=== PATIENT | male | born 1950 | race Caucasian/White ===

== ENCOUNTER 2018-07-20 12:09 | Inpatient (IN) | payer OTHER, MEDICAID ==
[~2018-07-20] VITALS: Ht 190.5 cm; Wt 94.8 kg
[2018-07-20] MEDS ORDERED: FURO20TA90 (12:25)
[2018-07-20] MEDS ORDERED: CLOP75TA15 PO (12:25)
[2018-07-20] MEDS ORDERED: DILTIAZEM HCL 25 MG IV IV ONE (12:45)
--- NOTE | 2018-07-20 12:52 | NUR ---
PT IS IN ROOM #2A. DR NOLASCO EVALUATED THE PT.
[2018-07-20 13:02] LABS: BASOPHILS % (AUTO) 0.7 % (0.0-2.0); EOSINOPHILS # (AUTO) 0.1 K/uL (0.0-0.7); HEMATOCRIT 36.7 % (36.7-47.1); HEMOGLOBIN 12.3 g/dL (12.5-16.3); LYMPHOCYTES # (AUTO) 0.9 K/uL (20.0-40.0); LYMPHOCYTES % (AUTO) 13.8 % (20.5-51.5); MEAN CORPUSCULAR HEMOGLOBIN 29.6 uug (23.8-33.4); MEAN CORPUSCULAR HGB CONC 34 g/dL (32.5-36.3); MEAN CORPUSCULAR VOLUME 88.1 fL (73.0-96.2); MONOCYTES # (AUTO) 0.7 K/uL (2.0-10.0); NEUTROPHILS # (AUTO) 4.9 K/uL (1.8-8.9); NEUTROPHILS % (AUTO) 72.5 % (38.5-71.5); PLATELET COUNT (AUTO) 307 K/uL (152-348); RED BLOOD CELL COUNT(AUTO) 4.17 MIL/uL (4.06-5.63); WHITE BLOOD COUNT (AUTO) 6.7 K/uL (3.6-10.2)
[2018-07-20 13:07] LABS: POTASSIUM 3.1 mmol/L (3.5-5.1)
[2018-07-20 13:12] LABS: BILIRUBIN,DIRECT 0.3 mg/dL (0.0-0.2); BILIRUBIN,TOTAL 0.7 mg/dL (0.2-1.0); TOTAL PROTEIN, SERUM 8.2 g/dL (6.4-8.2)
[2018-07-20] MEDS ORDERED: VANCOMYCIN IV 1,000 MG in IV DEXTROSE 5% 250 ML IV ONE (13:30)
[2018-07-20] MEDS ORDERED: POTASSIUM CHLORIDE 20 MEQ TAB.PRT.SR PO ONE (13:30)
[2018-07-20] MEDS ORDERED: VANCOMYCIN IV 200 ML ONE (13:34)
[2018-07-20] MEDS ORDERED: POTASSIUM CHLORIDE 20 MEQ TAB.PRT.SR ONE (13:34)
[2018-07-20] MEDS ORDERED: IV NORMAL SALINE 1000 ML BAG IV ONE ×2 (13:45)
[2018-07-20] MEDS ORDERED: ENOXAPARIN SODIUM 40 MG/0.4 ML DISP.SYRIN SQ SCH (14:15)
[2018-07-20] MEDS ORDERED: ACETAMINOPHEN 325 MG TABLET PO PRN ×2 (14:15→14:45)
[2018-07-20] MEDS ORDERED: MORPHINE SULFATE 2 MG/1 ML DISP.SYRIN IV PRN (14:15)
[2018-07-20] MEDS ORDERED: Z GUARD REMEDY PASTE 57 GM TUBE TOP PRN ×2 (14:15→14:45)
[2018-07-20] MEDS ORDERED: HYDROCODONE/APAP 5-325MG TABLET PO PRN ×2 (14:15→14:45)
[2018-07-20] MEDS ORDERED: MAGNESIUM HYDROXIDE 30 ML LIQUID UDC PO PRN ×2 (14:15→14:45)
[2018-07-20] MEDS ORDERED: ONDANSETRON 4 MG/2 ML VIAL IV PRN ×2 (14:15→14:45)
[2018-07-20] MEDS ORDERED: MORPHINE SULFATE 4 MG/1 ML DISP.SYRIN ONE (14:27)
[2018-07-20] MEDS ORDERED: diphenhydrAMINE 50 MG/1 ML VIAL IV ONE (14:30)
[2018-07-20] MEDS ORDERED: diphenhydrAMINE 50 MG/1 ML VIAL ONE (14:30)
[2018-07-20] MEDS ORDERED: MORPHINE SULFATE 4 MG/1 ML DISP.SYRIN IV ONE (14:30)
--- NOTE | 2018-07-20 14:35 | NUR ---
REPORT WAS GIVEN TO NON DESTRUCTIVE TESTER. PT WAS TRANSFERED TO ROOM #319.
[2018-07-20] MEDS ORDERED: APIX5TAB PO (15:04)
[2018-07-20] MEDS ORDERED: LISI-607 PO (15:04)
[2018-07-20] MEDS ORDERED: FURO40TA5 PO (15:04)
--- NOTE | 2018-07-20 15:04 | NUR ---
Patient's family discussed home medications with staff via telephone, updated record.
--- NOTE | 2018-07-20 16:16 | NUR ---
CLINICAL PHARMACY NOTE:VANCOMYCIN DOSING Request for vancomycin dosing on 67 y/o male 6'3" 210lbs for left foot cellulitis Temp 98.2 BUN 16 Scr 10 WBC 6.7 Received vancomycin 1gm in ER Continue vancomycin 1500mg ivpb q12h estimated trough 16. Will order trough level prior to 4th dose. Will continue to monitor
--- NOTE | 2018-07-20 16:30 | NUR ---
PATIENT ADMITTED TO ROOM 319 ON TELEMETRY, AFIB, 70-80S, NO ACUTE DISTRESS NOTED AT THIS TIME, REPORT RECEIVED PRIOR FROM SERENA WINN. LENORE MAGANA ADMITTING, ADMISSION ORDERS NOTED AND CARRIED OUT. NURSING ADMISSION ASSESSMENTS TO BE COMPLETED. BELONGINGS LIST COUNTED AND COMPLETED. CALL LIGHT WITHIN REACH. WILL CONTINUE TO MONITOR CLOSELY.
--- NOTE | 2018-07-20 17:25 | NUR ---
CLARIFIED DIET ORDER WITH LENORE MAGANA NP, SAID THAT IF PATIENT HAS ABD US THIS EVENING KEEP ON NPO UNTIL ABD US IS DONE THEN RESUME CARDIAC DIET. CALLED ZAC MONTES [facility] TECH, SAID THAT HE WILL DO ABD US TOMORROW MORNING AND TO KEEP PATIENT NPO MIDNIGHT. CARDIAC DIET ORDERED FOR DINNER. WILL CONTINUE TO MONITOR CLOSELY.
[2018-07-20 17:35] VITALS: BP 111/78
[2018-07-20] MEDS: FAMOTIDINE 20 MG TABLET PO SCH (18:01)
--- NOTE | 2018-07-20 18:54 | NUR ---
PATIENT RECEIVED ON BED RESTING IN STABLE CONDITION. ON TELE AFIB 70'S-80'S NO SOB NOTED NO PAIN/DISCOMFORT NOTED AT THIS TIME. CALL LIGHT WITH REACH WILL ENDORSE ACCORDINGLY
--- NOTE | 2018-07-20 19:45 | NUR ---
Received patient resting in bed, easily to arouse. No signs of acute distress. No complaints of SOB, patient on room air saturating at 96% Heplock on the left AC is intact and patent. Safety measures initiated. Bed is low and locked, bed alarm on, call light within reach. Will continue to monitor.
[2018-07-20 20:07] VITALS: BP 104/73
[2018-07-20] MEDS: ENOXAPARIN SODIUM 40 MG/0.4 ML DISP.SYRIN SQ SCH (20:40)
[2018-07-20] MEDS: MORPHINE SULFATE 2 MG/1 ML DISP.SYRIN IV PRN (20:49)
[2018-07-20 21:34] LABS: *BILIRUBIN,URIN NEGATIVE (NEGATIVE); *BLOOD, URINE NEGATIVE (NEGATIVE); *CLARITY,URINE CLEAR (CLEAR); *COLOR,URINE YELLOW (YELLOW); *KETONES,URINE NEGATIVE (NEGATIVE); LEUKOCYTE ESTERASE ,URINE NEGATIVE (NEGATIVE); NITRITE, URINE NEGATIVE (NEGATIVE); PH,URINE 6.5 (5.0-8.0); UGLUCOSE NEGATIVE (NEGATIVE)
[2018-07-20 21:42] LABS: SQUAMOUS EPITHELIAL CELL,UR FEW /HPF (NONE SEEN)
[2018-07-20 21:45] LABS: *AMPHETAMINE, URINE POSITIVE (NEGATIVE); *BARBITURATE, URINE NEGATIVE (NEGATIVE); *CANNABINOID, URINE NEGATIVE (NEGATIVE); *COCCAINE, URINE NEGATIVE (NEGATIVE); *OPIATE, URINE POSITIVE (NEGATIVE); *PHENCYCLIDINE SCREEN,URINE NEGATIVE (NEGATIVE)
--- NOTE | 2018-07-21 | NUR ---
PT DISCHARGED AND WAS WHEELED OUT VIA Turn. DISCHARGE PAPERS AND INSTRUCTIONS GIVEN. PT UNDERSTAND. PT STABLE AND IN NO ACUTE DISTRESS. PT BELONGINGS GIVEN. ID BAND AND IV LINE TAKEN OFF. Addendum: 07/22/18 at 0005 by JULEE LU RN WRONG DATE
[2018-07-21] MEDS: VANCOMYCIN IV 1,500 MG in IV DEXTROSE 5% 500 ML IV SCH ×2 (00:02→12:04)
[2018-07-21 00:16] VITALS: BP 114/75
[2018-07-21 04:00] VITALS: BP 120/67
[2018-07-21] MEDS: MORPHINE SULFATE 2 MG/1 ML DISP.SYRIN IV PRN ×2 (05:36→13:34)
--- NOTE | 2018-07-21 06:16 | NUR ---
Patient slept well throughout shift. No acute distress noted. Complained of pain with PRN pain medication given x2 and was effective. Patient is NPO for procedure of US of the abdomen. Safety measures give.
[2018-07-21 06:19] LABS: BASOPHILS % (AUTO) 0.7 % (0.0-2.0); EOSINOPHILS # (AUTO) 0.2 K/uL (0.0-0.7); EOSINOPHILS % (AUTO) 4.2 % (0.0-7.0); HEMATOCRIT 37.3 % (36.7-47.1); HEMOGLOBIN 12.3 g/dL (12.5-16.3); LYMPHOCYTES # (AUTO) 1.6 K/uL (20.0-40.0); LYMPHOCYTES % (AUTO) 28.4 % (20.5-51.5); MEAN CORPUSCULAR HEMOGLOBIN 29.5 uug (23.8-33.4); MEAN CORPUSCULAR HGB CONC 33 g/dL (32.5-36.3); MEAN CORPUSCULAR VOLUME 89.3 fL (73.0-96.2); MONOCYTES # (AUTO) 0.7 K/uL (2.0-10.0); NEUTROPHILS # (AUTO) 3.1 K/uL (1.8-8.9); NEUTROPHILS % (AUTO) 54.7 % (38.5-71.5); PLATELET COUNT (AUTO) 293 K/uL (152-348); RED BLOOD CELL COUNT(AUTO) 4.17 MIL/uL (4.06-5.63); WHITE BLOOD COUNT (AUTO) 5.6 K/uL (3.6-10.2)
[2018-07-21 06:42] LABS: THYROID STIMULATING HORMONE 1.22 mIU/mL (0.358-3.740)
[2018-07-21 06:47] LABS: BILIRUBIN,DIRECT 0.2 mg/dL (0.0-0.2); BILIRUBIN,TOTAL 0.4 mg/dL (0.2-1.0); CREATININE 0.8 mg/dL (0.6-1.3); MAGNESIUM 1.7 mg/dL (1.8-2.4); PHOSPHOROUS 2.8 mg/dL (2.5-4.9); POTASSIUM 3.4 mmol/L (3.5-5.1); TOTAL PROTEIN, SERUM 6.9 g/dL (6.4-8.2)
--- NOTE | 2018-07-21 07:43 | NUR ---
RESTING COMFORTABLY IN BED NO SS OF ACUTE PAIN OR SOB. CONTINUE WITH IV ANTIBIOTIC FOR CELLULITIS. CONTROLLED AFIB ON MONITOR
[2018-07-21] MEDS: FAMOTIDINE 20 MG TABLET PO SCH ×2 (08:27→16:11)
[2018-07-21] MEDS ORDERED: CLOPIDOGREL 75 MG TABLET PO SCH ×2 (09:00)
[2018-07-21] MEDS: MAGNESIUM SULFATE/D5W 100 ML IV SCH ×2 (10:48→11:22)
[2018-07-21 11:32] VITALS: BP 115/66
--- NOTE | 2018-07-21 11:40 | NUR ---
PHARMACY CLINICAL NOTES ( VANCOMYCIN DOSING ) S: To continue vanco for this 67 yo male patient for left foot cellulitis O: BUN/SCR 8/0.8 TEMP 98.4, WBC 5.6 ht 190 cm wt 94.8 kg A/P: Will continue same regimen of vanco 1500 mg IVPB q12hr for today. 2nd dose today at noon. Plan to check vanco trough level before next 4th dose (not yet ordered). Will continue following renal FXN and adjust the dose as needed. Will follow up
[2018-07-21] MEDS ORDERED: METOPROLOL SUCCINATE XL 25 MG TAB.SR.24H PO SCH (12:00)
--- NOTE | 2018-07-21 12:00 | NUR ---
NO ACUTE CHANGE CONTINUE WITH PAIN MANAGEMENT AND IV ANTIBIOTICS FOR CELLULITIS
[2018-07-21] MEDS: FUROSEMIDE 20 MG/2 ML VIAL IV SCH ×2 (12:36→20:55)
[2018-07-21] MEDS ORDERED: LIDOCAINE HCL 1% 20 ML VIAL IJ STA (13:12)
[2018-07-21] MEDS ORDERED: LORAZEPAM 2 MG/1 ML VIAL IV STA (13:14)
[2018-07-21] MEDS: POTASSIUM CHLORIDE 50 ML IV SCH ×2 (15:08→15:57)
[2018-07-21 16:31] VITALS: BP 118/69
[2018-07-21] MEDS ORDERED: APIXABAN 5 MG TABLET PO SCH (17:00)
--- NOTE | 2018-07-21 17:27 | NUR ---
SEEN BY DR MORAN I & D OF LEFT FOOT PERFORMED AT BEDSIDE UNDER LOCAL ANESTHESIA PATIENT TOLERATED WELL. DRAINAGE SENT FOR CS STUDY
--- NOTE | 2018-07-21 19:20 | NUR ---
RECEIVED PT AWAKE, ALERT AND ORIENTEDX4. PT SHOWS NO SIGNS OF ACUTE DISTRESS. PT TO BE DISCHARGED TO [facility]. SAFETY AND COMFORT PROVIDED. WILL CONTINUE TO MONITOR.
--- NOTE | 2018-07-21 20:26 | NUR ---
GIVEN REPORT TO THE NURSE IN [facility] [place].
[2018-07-21] MEDS: ENOXAPARIN SODIUM 40 MG/0.4 ML DISP.SYRIN SQ SCH (20:56)
[2018-07-21] MEDS ORDERED: MUPIROCIN 2% OINT 22 GM TUBE NS SCH (21:00)
--- NOTE | 2018-07-21 21:00 | NUR ---
HEIDY MIRANDA CALLED AND TOLD ME THAT THERE WILL BE DELAY ON PT TRANSFER. CALLED CECI BLACKBURN TO RELAY THE MESSAGE REGARDING PT TRANSFER WILL BE DELAYED.
[2018-07-21 21:12] VITALS: BP 123/76
--- NOTE | 2018-07-22 | NUR ---
PT DISCHARGED AND WAS WHEELED OUT VIA [employer]. DISCHARGE PAPERS AND INSTRUCTIONS GIVEN. PT UNDERSTAND. PT STABLE AND IN NO ACUTE DISTRESS. PT BELONGINGS GIVEN. ID BAND AND IV LINE TAKEN OFF.
[2018-07-22] MEDS ORDERED: METHADONE HCL 10 MG TABLET PO SCH (09:00)
== END 2018-07-22 00:15 | disposition short-term general hospital (02) | DRG 602 ==
LOC: ER 12:09 → TELE3 15:23
PROVIDERS: ADMIT Nurse Practitioner Acute Care; ATTEND Nurse Practitioner Acute Care
PROC: 0HBNXZZ Excision of Left Foot Skin, External Approach (ICD-10-PCS; principal; 2018-07-21)
DX: L03.116 Cellulitis of left lower limb (principal); I50.23 Acute on chronic systolic (congestive) heart failure; E44.0 Moderate protein-calorie malnutrition; L02.612 Cutaneous abscess of left foot; I42.9 Cardiomyopathy, unspecified; D68.59 Other primary thrombophilia; I48.91 Unspecified atrial fibrillation; E87.6 Hypokalemia; Z68.26 Body mass index [BMI] 26.0-26.9, adult; M81.0 Age-related osteoporosis without current pathological fracture; Z79.01 Long term (current) use of anticoagulants; Z79.02 Long term (current) use of antithrombotics/antiplatelets; M77.30 Calcaneal spur, unspecified foot; I48.2 Chronic atrial fibrillation; Z79.891 Long term (current) use of opiate analgesic; Z79.899 Other long term (current) drug therapy; S91.312A Laceration without foreign body, left foot, initial encounter; S91.115A Laceration without foreign body of left lesser toe(s) without damage to nail, initial encounter; W45.8XXA Other foreign body or object entering through skin, initial encounter; Y93.89 Activity, other specified; E83.42 Hypomagnesemia; I49.3 Ventricular premature depolarization; M48.00 Spinal stenosis, site unspecified; G89.29 Other chronic pain; R74.0 Nonspecific elevation of levels of transaminase and lactic acid dehydrogenase [LDH]
CPT/HCPCS: 36415; 71045; 73630; 76700; 80307; 83605; 83735; 84100; 84443; 85025; 85651; 87040; 87086; 93005; 93307; A4663; G0378; J1200; J1650; J1940; J2060; J2270; J3370; J3475; J3480; J3490; J7030; J7050; J7060

== ENCOUNTER 2020-02-13 16:59 | Inpatient (IN) | payer MEDICARE, OTHER ==
[~2020-02-13] VITALS: Ht 182.9 cm; Wt 93.1 kg
[~2020-02-13 16:59] MED LIST: APIX5TAB PO; CLOP75TA15 PO; FURO20TA90; FURO40TA5 PO; LISI-607 PO
[2020-02-13] MEDS ORDERED: IV NORMAL SALINE 500 ML BAG IV ONE (17:15)
[2020-02-13] MEDS ORDERED: ONDANSETRON 4 MG/2 ML VIAL IV ONE ×2 (17:15→18:30)
--- NOTE | 2020-02-13 17:42 | NUR ---
PT IS IN ROOM #2A. DR COTTER EVALUATED THE PT.
[2020-02-13 17:48] LABS: BASOPHILS # (AUTO) 0.1 K/uL (0.0-8.0); BASOPHILS % (AUTO) 1.4 % (0.0-2.0); EOSINOPHILS # (AUTO) 0.1 K/uL (0.0-0.7); EOSINOPHILS % (AUTO) 1.6 % (0.0-7.0); HEMATOCRIT 36.8 % (36.7-47.1); HEMOGLOBIN 11.8 g/dL (12.5-16.3); LYMPHOCYTES # (AUTO) 1.2 K/uL (20.0-40.0); LYMPHOCYTES % (AUTO) 25.4 % (20.5-51.5); MEAN CORPUSCULAR HEMOGLOBIN 28.1 uug (23.8-33.4); MEAN CORPUSCULAR HGB CONC 32 g/dL (32.5-36.3); MEAN CORPUSCULAR VOLUME 87.6 fL (73.0-96.2); MONOCYTES # (AUTO) 0.7 K/uL (2.0-10.0); MONOCYTES % (AUTO) 13.8 % (0.0-11.0); NEUTROPHILS # (AUTO) 2.8 K/uL (1.8-8.9); NEUTROPHILS % (AUTO) 57.8 % (38.5-71.5); PLATELET COUNT (AUTO) 248 K/uL (152-348); WHITE BLOOD COUNT (AUTO) 4.9 K/uL (3.6-10.2)
[2020-02-13] MEDS ORDERED: ONDANSETRON 4 MG/2 ML VIAL ONE ×2 (17:50→18:36)
--- NOTE | 2020-02-13 17:52 | NUR ---
PT IS CONFUSED AND UNCOOPERATIVE, UNABLE TO GET INFORMATION ON CURRENT MEDICATIONS.
[2020-02-13 17:56] LABS: CREATININE 0.9 mg/dL (0.6-1.3)
[2020-02-13 18:07] LABS: BILIRUBIN,DIRECT 0.3 mg/dL (0.0-0.2); BILIRUBIN,TOTAL 0.8 mg/dL (0.2-1.0); TOTAL PROTEIN, SERUM 8.7 g/dL (6.4-8.2)
[2020-02-13] MEDS ORDERED: IOHEXOL 300MG/ML 100 ML INFUS..BTL ONE (18:19)
[2020-02-13] MEDS ORDERED: IV NORMAL SALINE 250 ML IV ONE (18:19)
[2020-02-13] MEDS ORDERED: SWABABLE VALVE TRANSFER SET EA MC ONE (18:19)
--- NOTE | 2020-02-13 19:20 | NUR ---
Pt. admitted to TELE , under care of Dr. SHERMAN. ROOM 308. DX CHF Belongs List completed
--- NOTE | 2020-02-13 19:44 | NUR ---
rEPORT TO KINGSTON WINN ON TELEMETRY. PATIENT PREPARED FOR INPATIENT ADMISSION.
--- NOTE | 2020-02-13 20:00 | NUR ---
ADMITTED TO TELE FLOOR UNDER THE CARE OF DR. GOLDSMITH. PATIENT ALERT ORIENTED, NO SOB NO CHEST PAIN, NO COMPLAIN OF PAIN, CONTINENT USES URINAL FOR BLADDER ELIMINATION. CONT TO MONITOR.
[2020-02-13 20:28] VITALS: BP 126/79
[2020-02-13] MEDS ORDERED: ONDANSETRON 4 MG/2 ML VIAL IV PRN (20:30)
[2020-02-13] MEDS ORDERED: ACETAMINOPHEN 325 MG TABLET PO PRN (20:30)
[2020-02-13] MEDS ORDERED: HYDROCODONE/APAP 5-325MG TABLET PO PRN (20:30)
[2020-02-13] MEDS ORDERED: TEMAZEPAM 15 MG CAPSULE PO PRN (20:30)
[2020-02-13] MEDS: DOCUSATE SODIUM 100 MG CAPSULE PO SCH (21:41)
[2020-02-14] VITALS (7 sets, daily range): BP systolic 99–132; BP diastolic 61–85
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
[2020-02-14 06:59] LABS: BASOPHILS # (AUTO) 0.1 K/uL (0.0-8.0); BASOPHILS % (AUTO) 1.5 % (0.0-2.0); EOSINOPHILS # (AUTO) 0.2 K/uL (0.0-0.7); HEMATOCRIT 35.2 % (36.7-47.1); HEMOGLOBIN 11.6 g/dL (12.5-16.3); LYMPHOCYTES # (AUTO) 1.2 K/uL (20.0-40.0); LYMPHOCYTES % (AUTO) 32.5 % (20.5-51.5); MEAN CORPUSCULAR HGB CONC 33 g/dL (32.5-36.3); MEAN CORPUSCULAR VOLUME 87.7 fL (73.0-96.2); MONOCYTES # (AUTO) 0.7 K/uL (2.0-10.0); MONOCYTES % (AUTO) 17.8 % (0.0-11.0); NEUTROPHILS # (AUTO) 1.7 K/uL (1.8-8.9); NEUTROPHILS % (AUTO) 44.2 % (38.5-71.5); PLATELET COUNT (AUTO) 221 K/uL (152-348); RED BLOOD CELL COUNT(AUTO) 4.01 MIL/uL (4.06-5.63); WHITE BLOOD COUNT (AUTO) 3.8 K/uL (3.6-10.2)
[2020-02-14] MEDS ORDERED: PANTOPRAZOLE SODIUM 40 MG TABLET.DR PO SCH (07:00)
[2020-02-14 07:16] LABS: THYROID STIMULATING HORMONE 0.928 mIU/mL (0.358-3.740)
--- NOTE | 2020-02-14 07:21 | NUR ---
PATIENT HAS EPISODE OF V TACH FOR 2 SECONDS ONLY, PATIENT ASYMPTOMATIC, CONT TO MONITOR.
[2020-02-14 07:25] LABS: BILIRUBIN,TOTAL 0.8 mg/dL (0.2-1.0); PHOSPHOROUS 3.1 mg/dL (2.5-4.9); TOTAL PROTEIN, SERUM 7.6 g/dL (6.4-8.2)
[2020-02-14] MEDS: CLOPIDOGREL 75 MG TABLET PO SCH (08:50)
[2020-02-14] MEDS ORDERED: LISINOPRIL 5 MG TABLET PO SCH (09:00)
[2020-02-14] MEDS ORDERED: APIXABAN 5 MG TABLET PO SCH (09:00)
[2020-02-14] MEDS ORDERED: FUROSEMIDE 40 MG/4 ML VIAL IV SCH (09:00)
[2020-02-14] MEDS: METOPROLOL SUCCINATE XL 25 MG TAB.SR.24H PO SCH (11:30)
--- NOTE | 2020-02-14 11:41 | NUR ---
WOUND CARE CONSULT: PT PRESENTS WITH BILATERAL DRY FOOT WOUNDS, PRESENT ON ADMISSION. RECOMMEND DPM CONSULT. DR GALICIA NOTIFIED OF CONSULT REQUEST. WILL SEE PRN. IN AGREEMENT WITH PLAN OF CARE.
[2020-02-14 16:08] LABS: EOSINOPHILS % (MANUAL) 3 % (0-8); LYMPHOCYTES % (MANUAL) 35 % (20-40); MONOCYTES % (MANUAL) 17 % (2-10); NEUTROPHILS % (MANUAL) 45 % (42-75)
[2020-02-14] MEDS ORDERED: FUROSEMIDE 20 MG/2 ML VIAL IV SCH (17:00)
[2020-02-14] MEDS: APIXABAN 5 MG TABLET PO SCH (17:12)
[2020-02-14] MEDS ORDERED: MAGNESIUM HYDROXIDE 30 ML LIQUID UDC PO PRN (17:45)
[2020-02-14] MEDS: PANTOPRAZOLE SODIUM 40 MG TABLET.DR PO SCH (19:57)
[2020-02-14] MEDS: DOCUSATE SODIUM 100 MG CAPSULE PO SCH (21:23)
[2020-02-15 06:03] VITALS: BP 108/73
[2020-02-15] MEDS: PANTOPRAZOLE SODIUM 40 MG TABLET.DR PO SCH ×2 (06:17→17:46)
[2020-02-15 06:59] LABS: BASOPHILS # (AUTO) 0.1 K/uL (0.0-8.0); BASOPHILS % (AUTO) 1.2 % (0.0-2.0); EOSINOPHILS # (AUTO) 0.2 K/uL (0.0-0.7); EOSINOPHILS % (AUTO) 4.1 % (0.0-7.0); HEMATOCRIT 38.1 % (36.7-47.1); HEMOGLOBIN 12.4 g/dL (12.5-16.3); LYMPHOCYTES % (AUTO) 47.1 % (20.5-51.5); MEAN CORPUSCULAR HEMOGLOBIN 28.6 uug (23.8-33.4); MEAN CORPUSCULAR HGB CONC 33 g/dL (32.5-36.3); MEAN CORPUSCULAR VOLUME 88.2 fL (73.0-96.2); MONOCYTES # (AUTO) 0.5 K/uL (2.0-10.0); MONOCYTES % (AUTO) 12.1 % (0.0-11.0); NEUTROPHILS # (AUTO) 1.5 K/uL (1.8-8.9); NEUTROPHILS % (AUTO) 35.5 % (38.5-71.5); PLATELET COUNT (AUTO) 229 K/uL (152-348); RED BLOOD CELL COUNT(AUTO) 4.32 MIL/uL (4.06-5.63); WHITE BLOOD COUNT (AUTO) 4.2 K/uL (3.6-10.2)
[2020-02-15 07:07] LABS: BILIRUBIN,TOTAL 0.3 mg/dL (0.2-1.0); CREATININE 0.8 mg/dL (0.6-1.3); POTASSIUM 3.8 mmol/L (3.5-5.1); TOTAL PROTEIN, SERUM 7.8 g/dL (6.4-8.2)
[2020-02-15 08:00] VITALS: BP 95/62
[2020-02-15] MEDS: FUROSEMIDE 20 MG TABLET PO SCH (09:00)
[2020-02-15] MEDS: MIRALAX 17 GM POWD.PACK PO SCH ×2 (09:00→10:28)
[2020-02-15] MEDS: METOPROLOL SUCCINATE XL 25 MG TAB.SR.24H PO SCH (09:00)
[2020-02-15 09:27] LABS: POTASSIUM 3.8 mmol/L (3.5-5.1)
[2020-02-15] MEDS: CLOPIDOGREL 75 MG TABLET PO SCH (10:28)
[2020-02-15] MEDS: APIXABAN 5 MG TABLET PO SCH ×2 (10:29→17:46)
[2020-02-15 12:00] VITALS: BP 95/67
--- NOTE | 2020-02-15 15:51 | NUR ---
Pt sleeping, will do breast US tmrw in the AM
[2020-02-15 15:56] VITALS: BP 134/87
[2020-02-15] MEDS: METHADONE HCL 10 MG TABLET PO SCH (16:06)
--- NOTE | 2020-02-15 16:54 | NUR ---
Called radiology regarding US of bilateral breasts, informed that it will be done tomorrow
--- NOTE | 2020-02-15 17:58 | NUR ---
Dr. valladares called for pain management, informed regarding Methadone diskettes in pharmacy. Ordered Methadone 10mg and stated that pharmacy will call him if dose needed to be changed. Called pharmacy that patient is taking Methadone 60mg and they will call Dr. Valladares. Patient getting agitated and upset d/t medication. Informed patient again regarding situation
--- NOTE | 2020-02-15 18:53 | NUR ---
Talked to Dr. Conklin and [facility] pharmacist regarding Methadone, can't give to patient tonight since it has to be verified tomorrow. Will inform PM shift nurse
--- NOTE | 2020-02-15 19:56 | NUR ---
received asleep and left asleep as he gets agitated when awake, breathing regular and unlabored. with call light within reach, bed alarm on for safety. will continue to monitor,
[2020-02-15 20:10] VITALS: BP 140/87
--- NOTE | 2020-02-15 22:05 | NUR ---
still asleep .medication due held as patient prefers to sleep.
[2020-02-15] MEDS: DOCUSATE SODIUM 100 MG CAPSULE PO SCH (22:23)
--- NOTE | 2020-02-15 22:52 | NUR ---
patient requesting for the methadone dose but explained that the methadone dose needs to be verified with the pharmacy and that will be done in am, sleeping medication given asendorsed by the day shift as the patient becomes agitated
--- NOTE | 2020-02-16 00:19 | NUR ---
asleep. with call light within reach
[2020-02-16 04:25] VITALS: BP 117/80
[2020-02-16] MEDS: PANTOPRAZOLE SODIUM 40 MG TABLET.DR PO SCH (06:48)
[2020-02-16] MEDS: METOPROLOL SUCCINATE XL 25 MG TAB.SR.24H PO SCH (08:47)
[2020-02-16] MEDS: MIRALAX 17 GM POWD.PACK PO SCH (08:47)
[2020-02-16] MEDS: FUROSEMIDE 20 MG TABLET PO SCH (08:47)
[2020-02-16] MEDS: CLOPIDOGREL 75 MG TABLET PO SCH (08:47)
[2020-02-16] MEDS: METHADONE HCL 10 MG TABLET PO SCH (08:47)
[2020-02-16] MEDS: APIXABAN 5 MG TABLET PO SCH (08:48)
[2020-02-16 12:04] VITALS: BP 125/95
[2020-02-16] MEDS ORDERED: METHADONE HCL 10 MG TABLET PO ONE (12:15)
[2020-02-16] MEDS ORDERED: METH10TA PO (12:54)
[2020-02-16] MEDS ORDERED: PANT40TA2 PO (12:54)
[2020-02-16] MEDS ORDERED: METO-356 PO (12:54)
[2020-02-16] MEDS ORDERED: FURO20TA4 PO (12:54)
[2020-02-16] MEDS ORDERED: APIX5TAB PO (12:54)
[2020-02-16] MEDS ORDERED: DOCU100C36 PO (12:54)
--- NOTE | 2020-02-16 15:00 | NUR ---
PATIENT DISCHARGED SCHEDULED TO [facility]. VSS. BELONGINGS RETURNED TO PATIENT. DENIES PAIN. NO S/S OF DISTRESS NOTED. IV REMOVED, NO S/S OF BLEEDING. ID BAND REMOVED. PATIENT REFUSED DISCHARGE PHOTOS, EXPLAINED PROTOCOL - PATIENT INSISTED ON REFUSING. REPORT GIVEN TO TATUM AGUERO AT [facility]. REPORT GIVEN TO AMBULANCE PERSONNEL.
[2020-02-17] MEDS ORDERED: METHADONE HCL 10 MG TABLET PO SCH (09:00)
== END 2020-02-16 15:00 | DRG 291 ==
LOC: ER 16:59 → TELE3 19:46 → MEDSURG3 02-15 12:30
PROVIDERS: ADMIT Nurse Practitioner Acute Care; ATTEND Nurse Practitioner Acute Care
DX: I11.0 Hypertensive heart disease with heart failure (principal); E43 Unspecified severe protein-calorie malnutrition; G92 Toxic encephalopathy; I48.20 Chronic atrial fibrillation, unspecified; I47.2 Ventricular tachycardia; F11.20 Opioid dependence, uncomplicated; I50.23 Acute on chronic systolic (congestive) heart failure; Z20.828 Contact with and (suspected) exposure to other viral communicable diseases; D63.8 Anemia in other chronic diseases classified elsewhere; G89.4 Chronic pain syndrome; M20.41 Other hammer toe(s) (acquired), right foot; M20.42 Other hammer toe(s) (acquired), left foot; Z91.19 Patient's noncompliance with other medical treatment and regimen; Z88.0 Allergy status to penicillin; E88.09 Other disorders of plasma-protein metabolism, not elsewhere classified; K59.00 Constipation, unspecified; L89.896 Pressure-induced deep tissue damage of other site; I42.9 Cardiomyopathy, unspecified; F03.90 Unspecified dementia, unspecified severity, without behavioral disturbance, psychotic disturbance, mood disturbance, and anxiety; Z79.01 Long term (current) use of anticoagulants; R23.4 Changes in skin texture; N62 Hypertrophy of breast; Z96.649 Presence of unspecified artificial hip joint; Z68.27 Body mass index [BMI] 27.0-27.9, adult
CPT/HCPCS: 36415; 70030-TC; 70450; 71045; 83605; 83690; 83735; 84100; 84443; 85025; 85730; 87040; 93005; 93307; A4663; G0378; J1940; J2405; J7030; J7050; Q9967

== ENCOUNTER 2022-11-02 12:54 | Inpatient (IN) | payer MEDICARE, OTHER ==
[~2022-11-02] VITALS: Ht 190.5 cm; Wt 89.5 kg
[~2022-11-02 12:54] MED LIST changes: +DOCU100C36 PO; +FURO20TA4 PO; -FURO20TA90; -FURO40TA5 PO; -LISI-607 PO; +METH10TA PO; +METO-356 PO; +PANT40TA2 PO
[2022-11-02] MEDS ORDERED: ALBUTEROL SULFATE 2.5 MG/3 ML NEBU NEB ONE (13:15)
[2022-11-02] MEDS ORDERED: IPRATROPIUM BROMIDE 0.5 MG/2.5 ML NEBU NEB ONE (13:15)
[2022-11-02] MEDS ORDERED: methylPREDNISolone SOD SUCC 125 MG/2 ML VIAL IV ONE (13:15)
[2022-11-02] MEDS ORDERED: ALBUTEROL SULFATE 2.5 MG/3 ML NEBU ONE (13:19)
[2022-11-02] MEDS ORDERED: IPRATROPIUM BROMIDE 0.5 MG/2.5 ML NEBU ONE (13:19)
[2022-11-02 13:27] LABS: BASOPHILS # (AUTO) 0.1 K/UL (0.0-0.2); BASOPHILS % (AUTO) 0.5 % (0.0-2.0); EOSINOPHILS % (AUTO) 0.2 % (0.0-7.0); HEMATOCRIT 50.3 % (36.7-47.1); HEMOGLOBIN 16.3 g/dL (12.5-16.3); LYMPHOCYTES # (AUTO) 1.2 K/uL (0.8-4.8); LYMPHOCYTES % (AUTO) 11.5 % (20.5-51.5); MEAN CORPUSCULAR HEMOGLOBIN 29.5 uug (23.8-33.4); MEAN CORPUSCULAR HGB CONC 32 g/dL (32.5-36.3); MONOCYTES # (AUTO) 0.3 K/uL (0.1-1.30); MONOCYTES % (AUTO) 2.7 % (0.0-11.0); NEUTROPHILS # (AUTO) 8.6 K/uL (1.8-8.9); NEUTROPHILS % (AUTO) 85.1 % (38.5-71.5); PLATELET COUNT (AUTO) 359 K/uL (152-348); RED BLOOD CELL COUNT(AUTO) 5.53 MIL/uL (4.06-5.63); WHITE BLOOD COUNT (AUTO) 10.1 K/uL (3.6-10.2)
[2022-11-02 13:39] LABS: DIFFERENTIAL COMMENT 1
[2022-11-02 13:40] LABS: CALCIUM 9.4 mg/dL (8.5-10.1); CARBON DIOXIDE 30 mmol/L (21-32); CHLORIDE 102 mmol/L (98-107); GLUCOSE 146 mg/dL (74-106); POTASSIUM 4.9 mmol/L (3.5-5.1); SODIUM SERUM 139 mmol/L (136-145); UREA NITROGEN, BLOOD 20 mg/dL (7-18)
[2022-11-02 13:43] LABS: ABG BASE EXCESS -3.7 mmol/L; ABG PCO2 33.3 mmHg (35.0-45.0); ABG PH 7.397 (7.350-7.450); ABG SITE RIGHT BRACHIAL; ABG TOTAL HEMOGLOBIN 16.7 G/dL (13.5-18.0); COHb 0.7 % (0.5-1.5); MetHb 0.3 % (0.0-1.5); O2Hb 92.7 % (94.0-97.0)
[2022-11-02 13:45] VITALS: O2SAT 96
[2022-11-02] MEDS ORDERED: methylPREDNISolone SOD SUCC 125 MG/2 ML VIAL ONE (13:45)
[2022-11-02] MEDS ORDERED: OMEP40CA21 PO (13:46)
[2022-11-02] MEDS ORDERED: DAPA10TA PO (13:46)
[2022-11-02] MEDS ORDERED: METO-357 PO (13:46)
[2022-11-02] MEDS ORDERED: TAMS-3 PO (13:46)
[2022-11-02] MEDS ORDERED: ROSU20TA32 PO (13:46)
[2022-11-02] MEDS ORDERED: SACU1TAB PO (13:46)
[2022-11-02] MEDS ORDERED: FURO-151 PO (13:46)
[2022-11-02] MEDS ORDERED: CLON1TAB PO (13:46)
[2022-11-02 13:53] LABS: ALANINE AMINOTRANSFERASE 30 U/L (16-63); ALBUMIN 3.6 g/dL (3.4-5.0); ALKALINE PHOSPHATASE 68 U/L (50-136); ASPARTATE AMINOTRANSFERASE 39 U/L (15-37); BILIRUBIN,DIRECT 0.2 mg/dL (0.0-0.2); BILIRUBIN,TOTAL 0.6 mg/dL (0.2-1.0); NT-PRO BNP 5353 pg/mL (0-125); TOTAL PROTEIN, SERUM 8.8 g/dL (6.4-8.2)
[2022-11-02] MEDS ORDERED: ONDANSETRON 4 MG/2 ML VIAL IV ONE ×2 (14:15→16:30)
[2022-11-02] MEDS ORDERED: ONDANSETRON 4 MG/2 ML VIAL ONE ×2 (14:20→16:41)
[2022-11-02 14:45] VITALS: O2SAT 100; O2SAT 98
[2022-11-02] MEDS ORDERED: SWABABLE VALVE TRANSFER SET EA MC ONE (14:58)
[2022-11-02] MEDS ORDERED: IOHEXOL 350 100 ML INFUS..BTL ONE (14:58)
[2022-11-02] MEDS ORDERED: IV NORMAL SALINE 250 ML IV ONE (14:58)
[2022-11-02] MEDS ORDERED: FUROSEMIDE 40 MG/4 ML VIAL IV ONE (15:15)
[2022-11-02] MEDS ORDERED: NITROGLYCERIN OINT 1 GM PACKET TP ONE ×2 (15:15→16:46)
[2022-11-02] MEDS ORDERED: NITROGLYCERIN 0.4MG/HR (=16 CM2) PATCH TD ONE (16:43)
[2022-11-02] MEDS ORDERED: FUROSEMIDE 40 MG/4 ML VIAL ONE (16:46)
[2022-11-02] MEDS ORDERED: DAPA5TAB PO (17:21)
[2022-11-02] MEDS ORDERED: LORAZEPAM 2 MG/1 ML VIAL IV ONE (17:30)
[2022-11-02] MEDS ORDERED: HYDROCODONE/APAP 5-325MG TABLET PO PRN (17:45)
[2022-11-02] MEDS ORDERED: ACETAMINOPHEN 325 MG TABLET PO PRN (17:45)
[2022-11-02] MEDS ORDERED: ONDANSETRON 4 MG/2 ML VIAL IV PRN (17:45)
[2022-11-02] MEDS ORDERED: LORAZEPAM 2 MG/1 ML VIAL ONE (17:46)
[2022-11-02] MEDS ORDERED: Medication Not On Formulary EA (Rosuvastatin Calcium 1 TAB) PO SCH (18:00)
[2022-11-02 18:56] VITALS: BP 93/55; TEMP 98.1; O2SAT 93
[2022-11-02] MEDS: SACUBITRIL/VALSARTAN 24 MG-26 TABLET PO SCH (19:00)
[2022-11-02 20:00] VITALS: BP 96/69; TEMP 98.3; O2SAT 97
[2022-11-02] MEDS ORDERED: levoFLOXacin 500 MG/D5W 500 MG in PREMIXED 1 EACH IV SCH (20:00)
[2022-11-02] MEDS: TAMSULOSIN HCL 0.4 MG CAP.SR.24H PO SCH (20:09)
[2022-11-02] MEDS: ATORVASTATIN 40 MG TABLET PO SCH (20:11)
[2022-11-02] MEDS: LORAZEPAM 2 MG/1 ML VIAL IV PRN (21:21)
[2022-11-02] MEDS: METOPROLOL SUCCINATE XL 50 MG TAB.SR.24H PO SCH (21:37)
[2022-11-02] MEDS: methylPREDNISolone SOD SUCC 40 MG/ML VIAL IV SCH (23:30)
[2022-11-03] VITALS: BP 93/64; TEMP 97.1; O2SAT 92
[2022-11-03] MEDS ORDERED: ONDANSETRON 4 MG/2 ML VIAL IV PRN (03:45)
[2022-11-03 04:00] VITALS: BP 98/54; TEMP 97.8; O2SAT 92
[2022-11-03 05:01] VITALS: O2SAT 97
[2022-11-03] MEDS: methylPREDNISolone SOD SUCC 40 MG/ML VIAL IV SCH ×2 (06:01→20:38)
[2022-11-03] MEDS: PANTOPRAZOLE SODIUM 40 MG TABLET.DR PO SCH (06:01)
[2022-11-03 06:38] LABS: BASOPHILS % (AUTO) 0.2 % (0.0-2.0); HEMATOCRIT 46.1 % (36.7-47.1); HEMOGLOBIN 15.1 g/dL (12.5-16.3); LYMPHOCYTES % (AUTO) 5.9 % (20.5-51.5); MEAN CORPUSCULAR HEMOGLOBIN 29.6 uug (23.8-33.4); MEAN CORPUSCULAR HGB CONC 33 g/dL (32.5-36.3); MEAN CORPUSCULAR VOLUME 90.6 fL (73.0-96.2); MONOCYTES # (AUTO) 0.2 K/uL (0.1-1.30); MONOCYTES % (AUTO) 1.4 % (0.0-11.0); NEUTROPHILS % (AUTO) 92.5 % (38.5-71.5); PLATELET COUNT (AUTO) 351 K/uL (152-348); RED BLOOD CELL COUNT(AUTO) 5.08 MIL/uL (4.06-5.63); RED CELL DISTRIBUTION WIDTH 15.9 % (12.1-16.2); WHITE BLOOD COUNT (AUTO) 16.2 K/uL (3.6-10.2)
[2022-11-03 06:48] LABS: DIFFERENTIAL COMMENT 1
[2022-11-03 07:24] LABS: ALANINE AMINOTRANSFERASE 40 U/L (16-63); ALBUMIN 3.2 g/dL (3.4-5.0); ALKALINE PHOSPHATASE 65 U/L (50-136); ASPARTATE AMINOTRANSFERASE 39 U/L (15-37); BILIRUBIN,TOTAL 0.5 mg/dL (0.2-1.0); CALCIUM 8.9 mg/dL (8.5-10.1); CARBON DIOXIDE 30 mmol/L (21-32); CHLORIDE 100 mmol/L (98-107); CHOLESTEROL 179 mg/dL (<200); CREATININE 1.1 mg/dL (0.6-1.3); GLUCOSE 137 mg/dL (74-106); HDL CHOLESTEROL 33 mg/dL (40-60); MAGNESIUM 1.8 mg/dL (1.8-2.4); PHOSPHOROUS 3.9 mg/dL (2.5-4.9); POTASSIUM 4.6 mmol/L (3.5-5.1); SODIUM SERUM 137 mmol/L (136-145); TOTAL PROTEIN, SERUM 8.2 g/dL (6.4-8.2); TRIGLYCERIDES 72 MG/DL (30-150); UREA NITROGEN, BLOOD 29 mg/dL (7-18)
[2022-11-03] MEDS ORDERED: FUROSEMIDE 40 MG/4 ML VIAL IV SCH (09:00)
[2022-11-03] MEDS ORDERED: CLONAZEPAM 1 MG TABLET PO PRN (09:00)
[2022-11-03] MEDS: APIXABAN 5 MG TABLET PO SCH ×2 (09:01→20:47)
[2022-11-03] MEDS: SACUBITRIL/VALSARTAN 24 MG-26 TABLET PO SCH ×2 (09:13→17:38)
[2022-11-03] MEDS: DAPAGLIFLOZIN PROPANEDIOL 5 MG TABLET PO SCH (09:15)
[2022-11-03 12:00] VITALS: BP 103/65; TEMP 97.5; O2SAT 93
[2022-11-03] MEDS: MAG HYDROX/AL HYDROX/SIMETH 30 ML LIQUID UDC PO PRN ×2 (12:13→21:51)
[2022-11-03 16:14] VITALS: BP 109/59; TEMP 97.7; O2SAT 92
[2022-11-03] MEDS ORDERED: levoFLOXacin 750MG/D5W 150 ML IV SCH (20:00)
[2022-11-03 20:30] VITALS: BP 99/67; TEMP 97.6; O2SAT 92
[2022-11-03] MEDS: ATORVASTATIN 40 MG TABLET PO SCH (20:39)
[2022-11-03] MEDS: TAMSULOSIN HCL 0.4 MG CAP.SR.24H PO SCH (20:39)
[2022-11-03] MEDS: LORAZEPAM 2 MG/1 ML VIAL IV PRN (21:34)
[2022-11-03] MEDS ORDERED: MAG HYDROX/AL HYDROX/SIMETH 30 ML LIQUID UDC PO PRN (21:45)
[2022-11-04] VITALS (12 sets, daily range): BP systolic 98–122; BP diastolic 56–78; TEMP 97.6–98.6; O2SAT 91–98
[2022-11-04] MEDS: METOPROLOL SUCCINATE XL 50 MG TAB.SR.24H PO SCH ×2 (01:09→20:06)
[2022-11-04] MEDS: IPRATROPIUM BROMIDE 0.5 MG/2.5 ML NEBU NEB PRN ×2 (01:53→23:55)
[2022-11-04] MEDS: ALBUTEROL SULFATE 2.5 MG/3 ML NEBU NEB PRN ×2 (01:53→23:55)
[2022-11-04] MEDS: PANTOPRAZOLE SODIUM 40 MG TABLET.DR PO SCH (06:03)
[2022-11-04 06:44] LABS: HEMATOCRIT 43.9 % (36.7-47.1); HEMOGLOBIN 14.3 g/dL (12.5-16.3); LYMPHOCYTES # (AUTO) 0.9 K/uL (0.8-4.8); MEAN CORPUSCULAR HEMOGLOBIN 29.5 uug (23.8-33.4); MEAN CORPUSCULAR HGB CONC 33 g/dL (32.5-36.3); MEAN CORPUSCULAR VOLUME 90.5 fL (73.0-96.2); MONOCYTES # (AUTO) 0.5 K/uL (0.1-1.30); MONOCYTES % (AUTO) 2.9 % (0.0-11.0); NEUTROPHILS # (AUTO) 16.2 K/uL (1.8-8.9); NEUTROPHILS % (AUTO) 92.1 % (38.5-71.5); PLATELET COUNT (AUTO) 354 K/uL (152-348); RED BLOOD CELL COUNT(AUTO) 4.86 MIL/uL (4.06-5.63); RED CELL DISTRIBUTION WIDTH 15.6 % (12.1-16.2); WHITE BLOOD COUNT (AUTO) 17.6 K/uL (3.6-10.2)
[2022-11-04 06:54] LABS: CALCIUM 8.6 mg/dL (8.5-10.1); CARBON DIOXIDE 30 mmol/L (21-32); CHLORIDE 101 mmol/L (98-107); GLUCOSE 126 mg/dL (74-106); POTASSIUM 5.2 mmol/L (3.5-5.1); SODIUM SERUM 135 mmol/L (136-145); UREA NITROGEN, BLOOD 31 mg/dL (7-18)
[2022-11-04 06:57] LABS: DIFFERENTIAL COMMENT 1
[2022-11-04] MEDS: methylPREDNISolone SOD SUCC 40 MG/ML VIAL IV SCH (08:32)
[2022-11-04] MEDS: DAPAGLIFLOZIN PROPANEDIOL 5 MG TABLET PO SCH (08:33)
[2022-11-04] MEDS: APIXABAN 5 MG TABLET PO SCH ×2 (08:34→20:11)
[2022-11-04] MEDS: SACUBITRIL/VALSARTAN 24 MG-26 TABLET PO SCH ×2 (08:46→17:12)
[2022-11-04] MEDS ORDERED: SODIUM POLYSTYRENE SULFONATE 15 G/60 ML LIQUID UDC PO ONE (09:00)
[2022-11-04] MEDS ORDERED: methylPREDNISolone SOD SUCC 40 MG/ML VIAL IV SCH (09:00)
[2022-11-04] MEDS: MIRALAX 17 GM POWD.PACK PO SCH (15:18)
[2022-11-04] MEDS: ATORVASTATIN 40 MG TABLET PO SCH (20:05)
[2022-11-04] MEDS: TAMSULOSIN HCL 0.4 MG CAP.SR.24H PO SCH (20:05)
[2022-11-04] MEDS: LORAZEPAM 2 MG/1 ML VIAL IV PRN (20:21)
[2022-11-04] MEDS: MAG HYDROX/AL HYDROX/SIMETH 30 ML LIQUID UDC PO PRN (20:24)
[2022-11-05 00:06] VITALS: BP 135/87; TEMP 98.7; O2SAT 92
[2022-11-05 00:15] VITALS: O2SAT 98
[2022-11-05] MEDS: LORAZEPAM 2 MG/1 ML VIAL IV PRN (03:10)
[2022-11-05 04:22] VITALS: BP 98/63; TEMP 98.4; O2SAT 92
[2022-11-05] MEDS: PANTOPRAZOLE SODIUM 40 MG TABLET.DR PO SCH (06:14)
[2022-11-05 07:02] LABS: BASOPHILS % (AUTO) 0.1 % (0.0-2.0); HEMOGLOBIN 15.1 g/dL (12.5-16.3); LYMPHOCYTES % (AUTO) 10.6 % (20.5-51.5); MEAN CORPUSCULAR HEMOGLOBIN 29.3 uug (23.8-33.4); MEAN CORPUSCULAR HGB CONC 32 g/dL (32.5-36.3); MEAN CORPUSCULAR VOLUME 91.5 fL (73.0-96.2); MONOCYTES # (AUTO) 1.4 K/uL (0.1-1.30); MONOCYTES % (AUTO) 7.7 % (0.0-11.0); NEUTROPHILS # (AUTO) 15.3 K/uL (1.8-8.9); NEUTROPHILS % (AUTO) 81.6 % (38.5-71.5); PLATELET COUNT (AUTO) 370 K/uL (152-348); RED BLOOD CELL COUNT(AUTO) 5.14 MIL/uL (4.06-5.63); RED CELL DISTRIBUTION WIDTH 15.8 % (12.1-16.2); WHITE BLOOD COUNT (AUTO) 18.7 K/uL (3.6-10.2)
[2022-11-05 07:15] LABS: CALCIUM 8.9 mg/dL (8.5-10.1); CARBON DIOXIDE 34 mmol/L (21-32); CHLORIDE 101 mmol/L (98-107); GLUCOSE 98 mg/dL (74-106); SODIUM SERUM 137 mmol/L (136-145); UREA NITROGEN, BLOOD 25 mg/dL (7-18)
[2022-11-05 07:21] LABS: DIFFERENTIAL COMMENT 1
[2022-11-05 08:00] VITALS: BP 95/58; TEMP 98; O2SAT 95
[2022-11-05] MEDS: SACUBITRIL/VALSARTAN 24 MG-26 TABLET PO SCH (09:04)
[2022-11-05] MEDS: DAPAGLIFLOZIN PROPANEDIOL 5 MG TABLET PO SCH (09:04)
[2022-11-05] MEDS: APIXABAN 5 MG TABLET PO SCH (09:05)
[2022-11-05] MEDS: MIRALAX 17 GM POWD.PACK PO SCH (09:15)
[2022-11-05 11:53] VITALS: BP 103/58; TEMP 98.3; O2SAT 96
[2022-11-05] MEDS ORDERED: METH4TAB3 PO (12:57)
[2022-11-05 16:00] VITALS: BP 115/58; TEMP 98.5; O2SAT 95
[2022-11-06] MEDS ORDERED: methylPREDNISolone SOD SUCC 40 MG/ML VIAL IV SCH (09:00)
[2022-11-06 15:06] LABS: ADENOVIRUS Not Detected (Not Detected); CORONAVIRUS 229E Not Detected (Not Detected); CORONAVIRUS HKU1 Not Detected (Not Detected); CORONAVIRUS NL63 Not Detected (Not Detected); CORONAVIRUS OC43 Not Detected (Not Detected); NP BORDETELLA PERTUSIS Not Detected (Not Detected); NP CHLAMYDOPHILA PNEUMONIAE Not Detected (Not Detected); NP HUMAN METAPNEUMOVIRUS Not Detected (Not Detected); NP HUMAN RHINO/ENTERO VIRUS Not Detected (Not Detected); NP INFLUENZA A Not Detected (Not Detected); NP INFLUENZA A/H1 Not Detected (Not Detected); NP INFLUENZA A/H1-2009 Not Detected (Not Detected); NP INFLUENZA A/H3 Not Detected (Not Detected); NP INFLUENZA B Not Detected (Not Detected); NP MYCOPLASMA PNEUMONIAE Not Detected (Not Detected); NP PARAINFLUENZA 1 Not Detected (Not Detected); NP PARAINFLUENZA 2 Not Detected (Not Detected); NP PARAINFLUENZA 3 Not Detected (Not Detected); NP PARAINFLUENZA 4 Not Detected (Not Detected); NP RESPIRATORY SYNCYTIAL VIRUS Not Detected (Not Detected)
== END 2022-11-05 16:30 | DRG 280 ==
LOC: ER 12:54 → TELE3 17:39 → MEDSURG3 11-05 10:20
PROVIDERS: ADMIT Internal Medicine; ATTEND Nurse Practitioner Acute Care
DX: I11.0 Hypertensive heart disease with heart failure (principal); I21.A1 Myocardial infarction type 2; I50.23 Acute on chronic systolic (congestive) heart failure; J96.01 Acute respiratory failure with hypoxia; J44.1 Chronic obstructive pulmonary disease with (acute) exacerbation; F03.A4 Unspecified dementia, mild, with anxiety; I48.20 Chronic atrial fibrillation, unspecified; J84.9 Interstitial pulmonary disease, unspecified; J44.0 Chronic obstructive pulmonary disease with (acute) lower respiratory infection; I42.9 Cardiomyopathy, unspecified; D63.8 Anemia in other chronic diseases classified elsewhere; E87.5 Hyperkalemia; G89.4 Chronic pain syndrome; N40.0 Benign prostatic hyperplasia without lower urinary tract symptoms; Z79.01 Long term (current) use of anticoagulants; Z88.0 Allergy status to penicillin; Z96.641 Presence of right artificial hip joint; Z20.822 Contact with and (suspected) exposure to COVID-19; R53.1 Weakness; R73.9 Hyperglycemia, unspecified; R78.89 Finding of other specified substances, not normally found in blood; I25.10 Atherosclerotic heart disease of native coronary artery without angina pectoris; F41.9 Anxiety disorder, unspecified
CPT/HCPCS: 36415; 36600; 71045; 83605; 83735; 84100; 84443; 84484; 85025; 87040; 93005; 93307; 94640; A4663; G0378; J1940; J1956; J2060; J2405; J2920; J2930; J3590; Q9967